=== PATIENT | female | born 1935 | race Caucasian/White ===

== ENCOUNTER 2016-05-06 14:10 | Emergency (ER) | payer OTHER ==
--- NOTE | 2016-05-06 16:25 | DIAGNOSTIC IMAGING REPORT ---
PROCEDURE: XR ABD SERIES 2V ABD/1V CHEST INDICATION: ABDOMINAL PAIN TECHNIQUE: AP supine and upright views of the abdomen with single view of the chest. COMPARISON: None. FINDINGS: CHEST: Lungs are clear. Normal cardiovascular structures. Bony thorax is unremarkable. ABDOMEN: Bowel gas pattern is normal. Right upper quadrant, left upper quadrant and left abdominal surgical changes. No soft-tissue masses or unusual calcifications. No evidence of free air. Severe degenerative changes of the spine. IMPRESSION: 1. Negative acute abdominal series. 2. Surgical changes
--- NOTE | 2016-05-06 17:31 | DIAGNOSTIC IMAGING REPORT ---
PROCEDURE: CT ABDOMEN/PELVIS W/O CONTRAST INDICATION: Right-sided abdominal pain with jaundice. TECHNIQUE: Noncontrast axial images were obtained of the entire abdomen and pelvis with sagittal and coronal reformations. COMPARISON: CT abdomen/pelvis 04/16/2016. FINDINGS: ABDOMEN: Calcified right lower lobe granuloma. Mild cardiomegaly. Gastric bypass surgery with moderate hiatal hernia. Left abdominal and midline small bowel anastomoses. Cholecystectomy with progression of the extrahepatic (2.7 cm) and intrahepatic ductal dilation. No evidence of obstructing calculus or pancreatic pathological process. Atrophic pancreas without dilation of the pancreatic duct. Pancreas, right adrenal gland and kidneys are unremarkable. 2.3 cm left adrenal mass measures -14 Hounsfield units. Moderate atherosclerosis of the aorta. Nonspecific bowel gas pattern. PELVIS: Hysterectomy. Rojas catheter in place. Mild sigmoid diverticulosis. Bilateral inguinal surgical clips. No evidence of a pelvic mass or free fluid. Degenerative changes of the hips and spine. IMPRESSION: 1. Cholecystectomy with marked progression of extra hepatic and intrahepatic ductal dilation without evidence of an obstructing calculus or pancreatic pathological process. This may be due to a stricture or sphincter of Oddi mass. 2. Gastric bypass, bowel anastomoses, hysterectomy and bilateral inguinal surgical changes 3. Left adrenal adenoma 4. Results discussed with GUILLERMO Zepeda All CT scans at this facility use dose modulation, iterative reconstruction, and/or weight-based dosing when appropriate to reduce radiation dose to as low as reasonably achievable.
--- NOTE | 2016-05-06 17:42 | ED NURSING NOTES ---
Clinical Report - Nurses [facility] [address] [place] [address] 05/06/2016 14:10 Patient: GAURI FUENTSE TRIAGE Triage time 1422 PM. Acuity: LEVEL 2. Chief Complaint: DIZZINESS, WEAKNESS, CONFUSION, CONSTIPATION, ABDOMINAL PAIN, BLACK STOOLS, UNABLE TO VOID and ITCHING. Alert. No acute distress. SEPSIS SCREEN: Sepsis Screen. Negative (no infection suspected/documented). AGUS COMA SCORE: Agus Coma Scale: 15- eyes open spontaneously (4); best verbal response- oriented x 4 (5); best motor response- obeys commands (6). --14:43 Suri Charles R.N. 14:14 05/06/16. BP: 95/52. HR: 62. RR: 13. O2 saturation: 100% on room air. Temp: 98.1 F (oral). Pain level now: 12/01. --14:43 Suri Charles R.N. Weight: 106.5 kg stated. Height/Length: 63 inches Per Patient. BMI: 41.6. --14:15 Suri Charles R.N. Medications Albuterol Sulfate HFA Inhalation 2 puffs, as needed. Benzonatate Oral 100 mg, 3x a day. Calcitriol Oral. Cranberry Oral. Doxepin HCl Oral 10 mg, at bedtime. Flovent HFA Inhalation 110 mcg, daily. Glimepiride Oral (Tablet 1 mg) 1 tablet, daily. Levothyroxine Sodium Oral 75 mcg, daily. Lovastatin Oral 40 mg, at bedtime. Magnesium Oral 400 mg, daily. MiraLax Oral 1 packet, as needed. NexIUM Oral 40 mg, daily. Nitroglycerin Translingual 0.4mg tablets, up to 3 q5min, PRN. Ranitidine HCl Oral 150 mg, 2x a day. Sertraline HCl Oral 100 mg, daily. Spironolactone Oral 25 mg, daily. Tylenol Oral 500 mg daily. Vitamin B-12 Oral. Vitamin D Oral 5000 units daily. --14:36 Suri Charles R.N. Levofloxacin Oral 500 mg, daily. --14:55 Suri Charles R.N. Ergocalciferol Oral (Capsule 33607 unit). --14:55 Suri Charles R.N. Calcium Magnesium 750 Oral. --14:56 Suri Charles R.N. Ferrous Sulfate Oral 325 mg, daily. --14:56 Suri Charles R.N. Calcitriol Oral (Capsule 0.25 mcg) 1 capsule. --14:56 Suri Charles R.N. Pantoprazole Sodium Oral 40 mg, daily. --14:57 Suri Charles R.N. Allergies Amitriptylline. Bupropion. Carbocaine. Cipro. Codeine. Demerol. Depomedrol. Erythromycin. Hydrocodone. Ibuprofen. Kenalog. LIsinopril. Marcaine. Protonix. Sulfa Antibiotics. Tetracyclines. Ultram. Xylocaine. --14:36 Suri Charles R.N. Medication/allergy information source: the patient. --14:43 Suri Charles R.N. History Arrived by EMS. Historian: patient. Primary physician (Dr. Green). ( PT brought to ED via EMS, pt states having "severe abdominal pain right upper side and up by my esophagus" complaints of being very tired and sleeping most of the day, admits to having black stool and very dark urine.). This is a new problem. (3 weeks). She has had weakness and a cough. Reports muscle aches. No fever, difficulty breathing or skin rash. Treatment MEDICAL OFFICE ASSISTANT INSTRUCTOR: None. EMS treatment MEDICAL OFFICE ASSISTANT INSTRUCTOR verbally communicated. PAST MEDICAL HX: Immunizations: up-to-date. SOCIAL HX: Former smoker. Alcohol use. No drug use. No infectious disease exposure. ABUSE ASSESSMENT: No report of abuse. SELF HARM ASSESSMENT: A self harm assessment was performed. The patient answered "no" to the question "Do you have thoughts of harming or killing yourself?" and "Have you recently had thoughts about harming or killing others?". FALL RISK ASSESSMENT: Fall risk assessment completed. No fall risk identified. NUTRITIONAL RISK ASSESSMENT: The nutritional risk assessment revealed no deficiencies. FUNCTIONAL ASSESSMENT: Functional assessment: no impairments noted. LEARNING NEEDS ASSESSMENT: The learning needs assessment revealed no barriers. SKIN INTEGRITY ASSESSMENT: Skin integrity risk assessment completed. No skin integrity risk identified. --14:43 Suri Charles R.N. PROBLEMS: Abdominal Pain. UTI - Urinary Tract Infection. Myofascial Strain. Cervical Strain. Head Injury. Laceration. Fall. Diabetes Mellitus Type 2. Edema of lower leg. Iron deficiency anemia. Depression. Anxiety Reaction. GERD. COPD - Chronic Obstructive Pulmonary Disease. Fibromyalgia. Anemia. Hypertension. Sleep Apnea. Venous stasis syndrome. Hypothyroidism. Osteoporosis. UTI frequent. Leg cramps. Anemia. Hepatitis C. Chronic renal failure syndrome. Hearing Loss. Arthritis. Landa's esophagus. Piriformis syndrome. Urinary Retention. CHF. Cognitive dysfunction. Tetanus Status. Immunizations. Atrial Fibrillation. --14:37 Suri Charles R.N. ADDITIONAL SURGERIES: Appendectomy. Cholecystectomy. Gastric bypass. Hysterectomy. Tonsillectomy. --14:37 Suri Charles R.N. Interventions ID band on patient. --14:43 Suri Charles R.N. PHYSICAL ASSESSMENT To room via stretcher. GENERAL / NEURO / PSYCH: Appears in no acute distress. The patient is disoriented to person and situation. She has had new onset of generalized weakness. RESPIRATORY: Respirations not labored. Upper, mid- and lower sternal tenderness and xiphoid tenderness. The tenderness is well-localized. Breath sounds within normal limits. CVS: Cardiac rhythm: atrial fibrillation. Capillary refill is greater than 3 seconds. GI / : Abdominal tenderness. SKIN: Normal skin turgor. ( Pt is jaundice). --14:45 Suri Charles R.N. NURSING PROGRESS NOTES 14:05/06/2016 Site #1 accessed indwelling PIV line in the left antecubital space using a 20g needle (By EMS). --14:48 Suri Charles R.N. 14:05/06/2016 Site #2 started via IV in the left antecubital space with an 18g angiocath; one attempt. --14:52 Suri Charles R.N. 14:34 05/06/2016 Started bag #1 500 mL IV Fluids IV NS (Saline); at 500 mL/hr over 30 minute(s) via site #1 via IV pump. Allergies verified and confirmed 5 rights. IV patency established. IV site checked: no pain, redness, or swelling. IV flushed thoroughly pre- and post-medication administration. --14:49 Suri Charles R.N. 14:51 05/06/2016 Site #1 removed upon admission. Catheter intact. Manual pressure applied. --14:51 Suri Charles R.N. 14:15 05/06/16. BP: 89/46 (regular adult cuff) taken on the right arm, via an automated monitor, while lying. HR: 64 (irregular). RR: 15. O2 saturation: 100% on nasal cannula at 2 liters/minute. Pain level now: 11/01. --14:53 Suri Charles R.N. Cardiac rhythm: atrial fibrillation. Patient's personal items include: dress, undergarments, purse and wallet; items were placed in belongings bag and given to the patient. She did not have shoes. The initial plan of care for this patient has been created This plan of care was discussed with the patient. Oxygen administered by nasal cannula at 2 liters. mobile unit assistant, pulse oximeter and NIBP monitor placed on patient. EKG time: (1410 PM). EKG was performed by a tech and shown to the PA. Patient ID band checked for patient name, birthdate and medical record number: patient confirmed. Blood samples drawn from the left antecubital space peripheral IV site by nurse per protocol ; labeled in presence of the patient and sent to lab: rainbow set. Patient gowned. Reassurance given. Reassessment after oxygen and fluids administered. She is calm. GENERAL / NEURO / PSYCH: Denies headache or anxiety. RESPIRATORY: Denies difficulty breathing. CVS: Denies chest pain. Two patient identifiers checked. Call light placed in reach. Side rails up x 2. Bed placed in lowest position. Brakes of bed on. --14:53 Suri Charles R.N. Reassurance given. --14:54 Suri Charles R.N. 14:30 05/06/16. BP: 93/58. HR: 74. RR: 17. O2 saturation: 100% on nasal cannula at 2 liters/minute. Pain level now: 08/01. --14:54 Suri Charles R.N. EKG time: (6684). EKG was ordered, performed by a tech and shown to the ED physician. --15:07 Patricia Townsend ER Tech1 Patient transported. (1505 PM). --15:16 Suri Charles R.N. 15:31 05/06/16. BP: 102/57. --15:31 Patricia Townsend, ER Tech1 15:44 05/06/16. BP: 104/63. HR: 66 (irregular). RR: 20. O2 saturation: 100% on nasal cannula at 2 liters/minute. Temp: 97.8 F (oral). Pain level now: 11/01. Additional comments: only when moves. --15:47 Suri Charles R.N. Cardiac rhythm: atrial fibrillation. mobile unit assistant, pulse oximeter and NIBP monitor placed on patient. Reassurance given. Reassessment after oxygen administered. She is calm. Overall patient status is the same- she states feels the same. SKIN: Moderately abnormal color (jaundice). Two patient identifiers checked. Call light placed in reach. --15:47 Suri Charles R.N. 15:00 05/06/2016 IV Fluids IV NS Discontinued: bag #1. Total amount infused: 500 mL. IV patency established. IV site checked: no pain, redness, or swelling. IV flushed thoroughly. --15:51 Suri Charles R.N. 15:50 05/06/2016 Dilaudid (HYDROmorphone HCl PF) IVP 0.5 mg given over 1 minute(s) via site #2. Allergies verified, confirmed 5 rights and sedative warning given to the patient. IV patency established. IV site checked: no pain, redness, or swelling. IV flushed thoroughly pre- and post-medication administration. IVP given by RN. --15:50 Suri Charles R.N. late entry - 16:00. The patient is calm. Overall patient status is the same- she states feels the same. Patient returned from CT by stretcher. --16:48 Suri Charles R.N. 16:07 05/06/16. BP: 84/53 (regular adult cuff) taken on the right arm, via an automated monitor, while lying. HR: 57. RR: 15. O2 saturation: 100% on nasal cannula at 2 liters/minute. Temp: 98.2 F (oral). Pain level now: 08/01. --16:48 Suri Charles R.N. Cardiac rhythm: atrial fibrillation. mobile unit assistant, pulse oximeter and NIBP monitor placed on patient. Reassurance given. ( PA aware of BP being in the 80's pt asymptomatic, returned from CT tolerate well. NPO in place, awaiting on results). --16:51 Suri Charles R.N. 16:30 05/06/16. BP: 80/54. HR: 69. RR: 18. O2 saturation: 100% on nasal cannula at 2 liters/minute. Pain level now: 08/01. Additional comments: Pt asymptomatic. --16:51 Suri Charles R.N. 18:02 05/06/16. BP: 92/46 (regular adult cuff) taken on the right arm, via an automated monitor, while lying. HR: 62. RR: 16. O2 saturation: 100% on nasal cannula at 2 liters/minute. Temp: 98.6 F (oral). Pain level now: 08/01. --18:03 Suri Charles R.N. late entry - 17:00. Cardiac rhythm: atrial fibrillation. mobile unit assistant, pulse oximeter and NIBP monitor placed on patient. Reassurance given. --18:03 Suri Charles R.N. 18:03 05/06/16. BP: 82/47 (regular adult cuff) taken on the right arm, via an automated monitor, while lying. HR: 67. RR: 15. O2 saturation: 100%. Pain level now: 08/01. --18:06 Suri Charles R.N. Cardiac rhythm: atrial fibrillation. ( Rojas output at 200cc dark elaina urine). --18:06 Suri Charles R.N. Cardiac rhythm: atrial fibrillation. mobile unit assistant, pulse oximeter and NIBP monitor placed on patient. Reassurance given. The patient is calm. Overall patient status is the same- she states feels the same. ( BP retaken on Left side for comparison, BP at 90/53). Call light placed in reach. Side rails up. --18:10 Suri Charles R.N. 18:09 05/06/16. BP: 90/53 (regular adult cuff) taken on the left arm, via an automated monitor, while lying. HR: 67. RR: 16. O2 saturation: 100% on nasal cannula at 2 liters/minute. Pain level now: 11/01. Additional comments: only upon movement. --18:10 Suri Charles R.N. ( imaging disc on chart.). --18:52 [facility] 19:13 05/06/16. BP: 93/40. HR: 71. RR: 20. O2 saturation: 100%. Temp: 98.2 F. Pain level now: 08/01. --19:15 Suri Charles R.N. Cardiac rhythm: atrial fibrillation. mobile unit assistant, pulse oximeter and NIBP monitor placed on patient. Reassurance given. The patient is calm and resting quietly. Overall patient status is the same- she states feels the same. GENERAL / NEURO / PSYCH: Denies headache. RESPIRATORY: Denies difficulty breathing. CVS: Denies chest pain. GI / : Denies nausea. Call light placed in reach. ( Pt awaiting on a hospital acceptance, comfort provided, VSS, NPO status maintained). --19:15 Suri Charles R.N. 16:15 05/06/2016 Dilaudid IVP Response: no adverse reaction. --19:15 Suri Charles R.N. The patient is resting quietly. RESPIRATORY: No respiratory distress. SKIN: Skin is warm. Skin color within normal limits. --19:29 Kimberley Awad 19:28 05/06/16. BP: 95/45. HR: 67. RR: 18. O2 saturation: 100%. --19:29 Kimberley Awad 21:00 05/06/16. BP: 91/42 (regular adult cuff) taken on the left arm, via an automated monitor, while lying. HR: 62. RR: 15. O2 saturation: 99% on nasal cannula at 2 liters/minute. Temp: 98.2 F (oral). Pain level now: 6/10. --21:31 Suri Charles R.N. Cardiac rhythm: atrial fibrillation. mobile unit assistant, pulse oximeter and NIBP monitor placed on patient. Reassurance given. The patient is calm and sleeping. ( Pt still awaiting on a bed/hospital availability, UO at 60 for the past 3 hrs, NANDINI bhandari, BP maintaining at 90's. Comfort provided.). Call light placed in reach. Side rails up x 1. Brakes of bed on. --21:31 Suri Charles R.N. 23:18 05/06/2016 Site #2 reassessed; patent, infusing well and no signs of infection or infiltration. Converted to saline lock. Flushed with 10 mL saline. --23:18 Suri Charles R.N. 23:15 05/06/16. BP: 95/45. HR: 62. RR: 15. O2 saturation: 100% on nasal cannula at 2 liters/minute. Temp: 97.6 F (oral). Pain level now: 08/01. --23:19 Suri Charles R.N. Cardiac rhythm: atrial fibrillation. mobile unit assistant, pulse oximeter and NIBP monitor placed on patient. Reassurance given. ( Awaiting on transport to [facility], report given over the phone to JOSE Stewart. Emotional support provided.). GENERAL / NEURO / PSYCH: Denies headache or anxiety. RESPIRATORY: Denies difficulty breathing. Respiratory distress present. Breath sounds normal. CVS: Denies chest pain. GI / : Denies nausea. SKIN: Skin is warm and dry. Call light placed in reach. Side rails up. Care transferred and report given (JOSE Stewart in ). --23:19 Suri Charles R.N. 00:04 05/07/2016 Site #[address] upon transfer. --00:29 Stephenie Calvert R.N. DISPOSITION / DISCHARGE 23:45 05/06/16. BP: 87/50. HR: 67. RR: 14. O2 saturation: 98% on nasal cannula at 2 liters/minute. Temp: 97.6 F (oral). Pain level now: . --00:06 Suri Charles R.N. Cardiac rhythm: atrial fibrillation. Departure time: 0006 AM. Condition at departure: stable and critical. Transported via ambulance with monitor, IV, O2 and emergency medications. Report was given to a nurse via a phone call. Report included patient's care, treatment, medications, reviewed medication reconcilliation, and condition (including any recent changes or anticipated changes). All questions were answered. Report was acknowledged and care was transferred. (JOSE Stewart). ( Report given to JOSE Gaviria from [facility], BP down to 84/45 MD Layne aware, Albumin 25% given via route to Mary Lou Gutierrez, UO still very poor less than 20 ml since 9 pm. Code status updated as per pt is DNI, comfort measures, form signed and witnessed. Pt placed on stretcher safely.). --00:06 Suri Charles R.N. <<STRICKEN ENTRY-- 00:03 05/07/2016 albumin * IV 25 grams --00:28 Stephenie Calvert R.N. --END STRIKE>> Correction. --00:29 Stephenie Calvert R.N. 00:03 05/07/2016 albumin IV 25 grams started by JOSE Mccord as pt was leaving ED for transfer to outside facility --00:29 Stephenie Calvert R.N. Locked/Released at 05/07/2016 8:37 by Jeanette Sterling R.N.
--- NOTE | 2016-05-06 17:42 | ED CLINICAL REPORT ---
Clinical Report - Physicians/Mid Levels [facility] [address] [place] [address] 05/06/2016 14:10 Patient: GAURI FUENTES Time Seen: 14:12 Apr 15 2016. Arrived- By ambulance. Historian- patient and EMS personnel. HISTORY OF PRESENT ILLNESS Chief Complaint: ABDOMINAL PAIN. It is described as "pain" and it is described as located in the upper abdomen and in the left abdomen and the left flank. This started 10 days [employer] and is still present. The patient has had nausea. (abd pain , worsening over 10 days, reports no emesis/ diarrhea. Diminished appetite, only eating a yogurt/ toast a day. Patient denies new meds, travel. She denies shortness of breath. Denies chest pain. Possible melena in her stool. Denies emesis. She denies a headache. Denies syncope.). REVIEW OF SYSTEMS No constipation, hematemesis, difficulty with urination, pain with urination or bloody stools. No fever, headache, blurred vision or chest pain or pain. No chills, sweats, cough or pedal edema. The patient has had black stools. All systems otherwise negative, except as recorded above. PAST HISTORY Pt is a former Nurse. Problems: Abdominal Pain. UTI - Urinary Tract Infection. Myofascial Strain. Cervical Strain. Head Injury. Laceration. Fall. Diabetes Mellitus Type 2. Edema of lower leg. Iron deficiency anemia. Depression. Anxiety Reaction. GERD. COPD - Chronic Obstructive Pulmonary Disease. Fibromyalgia. Anemia. Hypertension. Sleep Apnea. Venous stasis syndrome. Hypothyroidism. Osteoporosis. UTI frequent. Leg cramps. Anemia. Hepatitis C. Chronic renal failure syndrome. Hearing Loss. Arthritis. Landa's esophagus. Piriformis syndrome. Urinary Retention. CHF. Cognitive dysfunction. Tetanus Status. Immunizations. Atrial Fibrillation. Additional Surgeries: Appendectomy. Cholecystectomy. Gastric bypass. Hysterectomy. Tonsillectomy. SOCIAL HISTORY Never smoker. No alcohol use or drug use. ADDITIONAL NOTES The nursing notes have been reviewed. PHYSICAL EXAM Vital Signs: 05/06/2016 14:14 BP: 95/52. HR: 62. RR: 13. O2 saturation: 100%. Temp: 98.1 F. Pain level now: 10. Appearance: Alert. (jaundice, scleara jaundice). Eyes: Eyes normal inspection. ENT: Ears normal. Neck: Normal inspection. No lymphadenopathy. CVS: Abnormal rhythm, which is irregularly irregular. Heart sounds normal. No cardiac murmur. Respiratory: No respiratory distress. No decreased air movement or rales. Abdomen: Moderate tenderness in the left side of the abdomen. Multiple scars present (central ventral, and RUQ). No guarding. Back: Normal inspection. No CVA tenderness. Rectal: Light brown stool. Rectal exam normal and nontender. Stool heme negative. (POC test reference range: negative). Skin: Skin warm. Normal skin color. Neuro: Oriented X 3. LABS, X-RAYS, AND EKG EKG: EKG time: (1425). Atrial fibrillation (65). Normal QRS complex. RBBB. new RBB since 04/16/2016. Abdominal CT: ABDOMEN: Calcified right lower lobe granuloma. Mild cardiomegaly. Gastric bypass surgery with moderate hiatal hernia. Left abdominal and midline small bowel anastomoses. Cholecystectomy with progression of the extrahepatic (2.7 cm) and intrahepatic ductal dilation. No evidence of obstructing calculus or pancreatic pathological process. Atrophic pancreas without dilation of the pancreatic duct. Pancreas, right adrenal gland and kidneys are unremarkable. 2.3 cm left adrenal mass measures -14 Hounsfield units. Moderate atherosclerosis of the aorta. Nonspecific bowel gas pattern. PELVIS: Hysterectomy. Rojas catheter in place. Mild sigmoid diverticulosis. Bilateral inguinal surgical clips. No evidence of a pelvic mass or free fluid. Degenerative changes of the hips and spine. IMPRESSION: 1. Cholecystectomy with marked progression of extra hepatic and intrahepatic ductal dilation without evidence of an obstructing calculus or pancreatic pathological process. This may be due to a stricture or sphincter of Oddi mass. 2. Gastric bypass, bowel anastomoses, hysterectomy and bilateral inguinal surgical changes 3. Left adrenal adenoma 4. Results discussed with GUILLERMO Zepeda All CT scans at this facility use dose modulation, iterative reconstruction, and/or weight-based dosing when appropriate to reduce radiation dose to as low as reasonably achievable. Electronically Final signed by:Jared Ecsobar MD 05/06/2016 5:31:00 PM. Laboratory Tests: UA-Culture if indicated: (CHUY: 05/06/2016 14:40) ( [facility] [place] 05/06/2016 15:22) Final results Test Result Flag Units (Reference) URINE COLOR JANE URINE APPEARANCE CLEAR URINE GLUCOSE NEGATIVE (NEGATIVE) URINE BILIRUBIN 3+ (NEGATIVE) URINE BILIRUBIN ICTOTEST POSITIVE (NEGATIVE) URINE KETONE NEGATIVE (NEGATIVE) URINE SPECIFIC GRAVITY 1.025 (1.010-1.030) URINE PH 6.0 (5.0-8.0) URINE PROTEIN 1+ (NEGATIVE) URINE UROBILINOGEN 1.0 EU/dL (0.2-1.0) URINE NITRITE NEGATIVE (NEGATIVE) URINE BLOOD NEGATIVE (NEGATIVE) URINE LEUK ESTERASE NEGATIVE (NEGATIVE) URINE RBC 1-3 rbc/hpf (0-1) URINE WBC 1-3 wbc/hpf (0-1) URINE EPITHELIAL CELLS 3-5 EPI/hpf (0-5) URINE BACTERIA TRACE (<1+) (NONE SEEN) URINE COMMENT CULT NOT INDICATED URINE CULTURES ARE SET-UP BASED ON THE FOLLOWING CRITERIA:POSITIVE NITRITEPOSITIVE LEUKOCYTE ESTERASEGREATER THAN 10 WHITE BLOOD CELLSMODERATE (2+) OR GREATER BACTERIA CBC w Diff: (CHUY: 05/06/2016 14:18) ( [facility] 05/06/2016 14:28) Final results Test Result Flag Units (Reference) WHITE BLOOD COUNT 12.7 H K/uL (4.5-11.5) RED BLOOD COUNT 3.96 L M/uL (4.00-5.20) HEMOGLOBIN 11.7 L gm/dL (12.0-16.0) HEMATOCRIT 34.8 L % (36.0-46.0) MEAN CELL VOLUME 88 fL (80-100) MEAN CORPUSCULAR HGB 30 pg (26-34) MEAN CORPUSCULAR HGB CONC 34 g/dL (31-37) RED CELL DISTRIBUTION WIDTH 17.0 H % (11.6-14.8) PLATELET COUNT 282 K/uL (150-400) NEUTROPHIL % 84.3 H % (50-75) LYMPH % 4.6 L % (25-40) MONO % 10.6 % (3-14) EOSINOPHIL % 0.5 % (0-4) BASOPHIL % 0 % (0-2) PT with INR: (CHUY: 05/06/2016 14:18) ( [facility] 05/06/2016 14:43) Final results Test Result Flag Units (Reference) INR 1.1 (0.8-1.2) Low Intensity Therapy: INR 1.5-2.0 PT range 18.5-23.1Mod.Intensity Therapy: INR 2.0-3.0 PT range 23.1-31.5High Intensity Therapy: INR 2.5-3.5 PT range 27.4-35.5High Intensity Therapy 2: INR 3.0-4.0 PT range 31.5-39.3 APTT 36 H SECONDS (24-34) Troponin-I: (CHUY: 05/06/2016 20:40) ( [facility] 05/06/2016 21:20) Final results Test Result Flag Units (Reference) TROPONIN I 0.16 ng/mL (0.00-1.5) TROPONIN REFERENCE RANGE:<0.1 NEGATIVE0.1-1.5 INDETERMINANT>1.5 POSITIVE Troponin-I: (CHUY: 05/06/2016 17:43) ( [facility] 05/06/2016 18:05) Final results Test Result Flag Units (Reference) TROPONIN I 0.19 ng/mL (0.00-1.5) TROPONIN REFERENCE RANGE:<0.1 NEGATIVE0.1-1.5 INDETERMINANT>1.5 POSITIVE [id number]: (CHUY: 05/06/2016 14:18) ( [facility] 05/06/2016 15:39) Final results Test Result Flag Units (Reference) BILIRUBIN, DIRECT 13.1 H mg/dL (0-0.3) BNP: (CHUY: 05/06/2016 14:18) ( [facility] 05/06/2016 14:59) Final results Test Result Flag Units (Reference) B-TYPE NATRIURETIC PEPTIDE 1900 H pg/ml (5-100) Acetone, Serum: (CHUY: 05/06/2016 14:18) ( [facility] [place] 05/06/2016 15:24) Final results Test Result Flag Units (Reference) ACETONE, SERUM QUALITATIVE NEGATIVE (NEGATIVE) Ammonia Level: (CHUY: 05/06/2016 14:18) ( [facility] [place] 05/06/2016 16:07) Final results Test Result Flag Units (Reference) AMMONIA < 11 L umol/L (11-32) Lactate, Serum: (CHUY: 05/06/2016 14:18) ( [facility] [place] 05/06/2016 14:51) Final results Test Result Flag Units (Reference) LACTIC ACID 1.0 mmol/L (0.4-2.0) [id number]: (CHUY: 05/06/2016 14:18) ( [facility] [place] 05/06/2016 15:14) Final results Test Result Flag Units (Reference) PROCALCITONIN 1.8 H ng/mL (0-0.5) PCT Concentration: Interpretation : Risk/option for action PCT <=0.5 ng/mL : Systemic : Low risk forinfection(sepsis): progression to severeis not likely. : systemic infection.Local bacterial : CAUTION-PCT levelsinfection is : below 0.5 ng/mL do notpossible. : exclude an infection,because localizedinfections (withoutsystemic signs) may beassociated with suchlow levels. If PCT ismeasured very earlyafter a bacterialchallenge (usually <6hours), these valuesmay still be low. Inthis case PCT shouldbe re-assessed 6-24hours later. PCT >0.5 and : Systemic infection: Moderate risk for<= 2 ng/mL : (sepsis) is : progression to severepossible, but : systemic infection.other conditions : The patient should beare known to : closely monitoredelevate PCT. : both clinically andby re-assessing PCTwithin 6-24 hours. PCT > 2 ng/mL : Systemic infection: High risk for(sepsis) is likely: progression to severeunless other : systemic infection.causes are known. : PCT >= 10 ng/mL : Important systemic: High likelihood ofinflammatory : severe sepsis orresponse, almost : septic shock.exclusively due to:severe bacterial :sepsis or septic :shock. : Lipase: (CHUY: 05/06/2016 14:18) ( [facility] 05/06/2016 14:56) Final results Test Result Flag Units (Reference) LIPASE 50 L U/L (73-393) AMYLASE 21 L U/L (25-115) CHEM 13 PANEL: (CHUY: 05/06/2016 14:18) ( [facility] 05/06/2016 15:25) Final results Test Result Flag Units (Reference) GLUCOSE 81 mg/dL (70-110) BUN 48 H mg/dL (7-18) CREATININE 2.0 H mg/dL (0.6-1.3) Estimated GFR 25.61 mL/min Estimated GFR- 31.04 mL/min Note: Persistent reduction over 3 months in eGFR<60 mL/min/1.73 m2 defines CKD. Patients with eGFR values>=60 mL/min/1.73 m2 may also have CKD if evidence ofpersistent proteinuria. Additional information may be foundat www.kidney.org. SODIUM 132 L mmol/L (136-145) POTASSIUM 3.8 mmol/L (3.5-5.1) CHLORIDE 100 mmol/L (98-107) CARBON DIOXIDE 20 L mmol/L (21-32) CALCIUM 9.2 mg/dL (8.5-10.1) TOTAL PROTEIN 6.3 L g/dL (6.4-8.2) ALBUMIN 2.7 L g/dL (3.3-5.0) BILIRUBIN, TOTAL 15.2 H mg/dL (0.0-1.0) CRITICAL RESULTS CALLEDCalled to NANDINI TELLES IN ED 05/06/16 1521Were 2 patient identifiers used? YWas the result read back? Y ALKALINE PHOSPHATASE 405 H U/L (46-116) AST (SGOT) 124 H U/L (15-37) ALT (SGPT) 85 H U/L (12-78) MAGNESIUM 1.9 mg/dL (1.8-2.4) CPK 40 U/L (24-260) TROPONIN I 0.21 ng/mL (0.00-1.5) TROPONIN REFERENCE RANGE:<0.1 NEGATIVE0.1-1.5 INDETERMINANT>1.5 POSITIVE Rapid Influenza Screen: (CHUY: 05/06/2016 15:00) ( MsgRcvd 05/06/2016 15:37) Final results SPECIMEN DESCRIPTION: N Test Result Flag Units (Reference) RAPID INFLUENZA SCREEN DATE: 05/06/16 INFLUENZA A: NEGATIVE SCREEN FOR INFLUENZA A INFLUENZA B: NEGATIVE SCREEN FOR INFLUENZA B . PROGRESS AND PROCEDURES Course of Care: Discussed case with DR. Watson, who recommends non contrast CT I spoke to Dr. Dumont, surgery, who recommends higher level [address] Michael Nova (surgery prov) who recommends facility who is able to complete possible [place] 1750: [facility] to capacity 18:00 I spoke to [facility] [place] who reports they are rather full , will attempt to find placement of patient to a hospital. 21:50 I spoke to [facility] Chen , who accepts pt for transfer. Shortly this is a 80-year-old female with abdominal pain, with multiple co morbidities, with an elevated bilirubin today, with jaundice, status post cholecystectomy, with no obvious signs of obstruction on CAT scan. Patient likely need of an ERCP, to understand furtherbiliary possible obstruction. She has been nonseptic here afebrile, with slight leukocytosis with a left shift, with a negative lactic acid. Systolically her blood pressure has been from 80-1 sign, otherwise she has remained irregular regular from 58-72 heart rate. In addition patient has chronic renal failure, creatinine of 2.0, and addition she does not appear fluid overloaded, without any edema, her has BNP of almost 2000 she was given a 500 mL bolus upon arrival, and the fluid was stopped after results. Troponin was found to indeterminate 0.21, and has trended downward from such to 0.19 as well as 0.16. Her EKG showed atrial fibrillation otherwise also a right bundle branch block. I discussed patient's CODE STATUS with her, this time she does not want any extreme measures. 05/06/2016 21:00 BP: 91/42. HR: 62. RR: 15. O2 saturation: 99%. Temp: 98.2 F. Pain level now: 08/01. 05/06/2016 19:28 BP: 95/45. HR: 67. RR: 18. O2 saturation: 100%. 05/06/2016 19:13 BP: 93/40. HR: 71. RR: 20. O2 saturation: 100%. Temp: 98.2 F. Pain level now: 08/01. 05/06/2016 18:09 BP: 90/53. HR: 67. RR: 16. O2 saturation: 100%. Pain level now: 11/01. 05/06/2016 15:44 BP: 104/63. HR: 66. RR: 20. O2 saturation: 100%. Temp: 97.8 F. Pain level now: 11/01. 05/06/2016 15:31 BP: 102/57. 05/06/2016 14:30 BP: 93/58. HR: 74. RR: 17. O2 saturation: 100%. Pain level now: 08/01. 05/06/2016 14:15 BP: 89/46. HR: 64. RR: 15. O2 saturation: 100%. Pain level now: 11/01. Patient is stable. Symptoms better. Patient/family counseled. Disposition: Transferred to [facility]. CLINICAL IMPRESSION Suspected biliary obstruction Indeterminate Troponin Leukocytosis Afib Chronic Renal Failure DM CHF. INSTRUCTIONS Warnings: Further evaluation is necessary. (Electronically signed by Sandrine Telles P.A.-C 05/06/2016 22:23)
--- NOTE | 2016-05-06 17:42 | ED CLINICAL REPORT ---
Clinical Report - Physicians/Mid Levels [facility] [address] [place] [address] 05/06/2016 14:10 Patient: GAURI FUENTES Time Seen: 14:12 Apr 15 2016. Arrived- By ambulance. Historian- patient and EMS personnel. HISTORY OF PRESENT ILLNESS Chief Complaint: ABDOMINAL PAIN. It is described as "pain" and it is described as located in the upper abdomen and in the left abdomen and the left flank. This started 10 days [employer] and is still present. The patient has had nausea. (abd pain , worsening over 10 days, reports no emesis/ diarrhea. Diminished appetite, only eating a yogurt/ toast a day. Patient denies new meds, travel. She denies shortness of breath. Denies chest pain. Possible melena in her stool. Denies emesis. She denies a headache. Denies syncope.). REVIEW OF SYSTEMS No constipation, hematemesis, difficulty with urination, pain with urination or bloody stools. No fever, headache, blurred vision or chest pain or pain. No chills, sweats, cough or pedal edema. The patient has had black stools. All systems otherwise negative, except as recorded above. PAST HISTORY Pt is a former Nurse. Problems: Abdominal Pain. UTI - Urinary Tract Infection. Myofascial Strain. Cervical Strain. Head Injury. Laceration. Fall. Diabetes Mellitus Type 2. Edema of lower leg. Iron deficiency anemia. Depression. Anxiety Reaction. GERD. COPD - Chronic Obstructive Pulmonary Disease. Fibromyalgia. Anemia. Hypertension. Sleep Apnea. Venous stasis syndrome. Hypothyroidism. Osteoporosis. UTI frequent. Leg cramps. Anemia. Hepatitis C. Chronic renal failure syndrome. Hearing Loss. Arthritis. Landa's esophagus. Piriformis syndrome. Urinary Retention. CHF. Cognitive dysfunction. Tetanus Status. Immunizations. Atrial Fibrillation. Additional Surgeries: Appendectomy. Cholecystectomy. Gastric bypass. Hysterectomy. Tonsillectomy. SOCIAL HISTORY Never smoker. No alcohol use or drug use. ADDITIONAL NOTES The nursing notes have been reviewed. PHYSICAL EXAM Vital Signs: 05/06/2016 14:14 BP: 95/52. HR: 62. RR: 13. O2 saturation: 100%. Temp: 98.1 F. Pain level now: 10. Appearance: Alert. (jaundice, scleara jaundice). Eyes: Eyes normal inspection. ENT: Ears normal. Neck: Normal inspection. No lymphadenopathy. CVS: Abnormal rhythm, which is irregularly irregular. Heart sounds normal. No cardiac murmur. Respiratory: No respiratory distress. No decreased air movement or rales. Abdomen: Moderate tenderness in the left side of the abdomen. Multiple scars present (central ventral, and RUQ). No guarding. Back: Normal inspection. No CVA tenderness. Rectal: Light brown stool. Rectal exam normal and nontender. Stool heme negative. (POC test reference range: negative). Skin: Skin warm. Normal skin color. Neuro: Oriented X 3. LABS, X-RAYS, AND EKG EKG: EKG time: (1425). Atrial fibrillation (65). Normal QRS complex. RBBB. new RBB since 04/16/2016. Abdominal CT: ABDOMEN: Calcified right lower lobe granuloma. Mild cardiomegaly. Gastric bypass surgery with moderate hiatal hernia. Left abdominal and midline small bowel anastomoses. Cholecystectomy with progression of the extrahepatic (2.7 cm) and intrahepatic ductal dilation. No evidence of obstructing calculus or pancreatic pathological process. Atrophic pancreas without dilation of the pancreatic duct. Pancreas, right adrenal gland and kidneys are unremarkable. 2.3 cm left adrenal mass measures -14 Hounsfield units. Moderate atherosclerosis of the aorta. Nonspecific bowel gas pattern. PELVIS: Hysterectomy. Rojas catheter in place. Mild sigmoid diverticulosis. Bilateral inguinal surgical clips. No evidence of a pelvic mass or free fluid. Degenerative changes of the hips and spine. IMPRESSION: 1. Cholecystectomy with marked progression of extra hepatic and intrahepatic ductal dilation without evidence of an obstructing calculus or pancreatic pathological process. This may be due to a stricture or sphincter of Oddi mass. 2. Gastric bypass, bowel anastomoses, hysterectomy and bilateral inguinal surgical changes 3. Left adrenal adenoma 4. Results discussed with GUILLERMO Zepeda All CT scans at this facility use dose modulation, iterative reconstruction, and/or weight-based dosing when appropriate to reduce radiation dose to as low as reasonably achievable. Electronically Final signed by:Jared Escobar MD 05/06/2016 5:31:00 PM. Laboratory Tests: UA-Culture if indicated: (CHUY: 05/06/2016 14:40) ( [facility] [place] 05/06/2016 15:22) Final results Test Result Flag Units (Reference) URINE COLOR JANE URINE APPEARANCE CLEAR URINE GLUCOSE NEGATIVE (NEGATIVE) URINE BILIRUBIN 3+ (NEGATIVE) URINE BILIRUBIN ICTOTEST POSITIVE (NEGATIVE) URINE KETONE NEGATIVE (NEGATIVE) URINE SPECIFIC GRAVITY 1.025 (1.010-1.030) URINE PH 6.0 (5.0-8.0) URINE PROTEIN 1+ (NEGATIVE) URINE UROBILINOGEN 1.0 EU/dL (0.2-1.0) URINE NITRITE NEGATIVE (NEGATIVE) URINE BLOOD NEGATIVE (NEGATIVE) URINE LEUK ESTERASE NEGATIVE (NEGATIVE) URINE RBC 1-3 rbc/hpf (0-1) URINE WBC 1-3 wbc/hpf (0-1) URINE EPITHELIAL CELLS 3-5 EPI/hpf (0-5) URINE BACTERIA TRACE (<1+) (NONE SEEN) URINE COMMENT CULT NOT INDICATED URINE CULTURES ARE SET-UP BASED ON THE FOLLOWING CRITERIA:POSITIVE NITRITEPOSITIVE LEUKOCYTE ESTERASEGREATER THAN 10 WHITE BLOOD CELLSMODERATE (2+) OR GREATER BACTERIA CBC w Diff: (CHUY: 05/06/2016 14:18) ( [facility] 05/06/2016 14:28) Final results Test Result Flag Units (Reference) WHITE BLOOD COUNT 12.7 H K/uL (4.5-11.5) RED BLOOD COUNT 3.96 L M/uL (4.00-5.20) HEMOGLOBIN 11.7 L gm/dL (12.0-16.0) HEMATOCRIT 34.8 L % (36.0-46.0) MEAN CELL VOLUME 88 fL (80-100) MEAN CORPUSCULAR HGB 30 pg (26-34) MEAN CORPUSCULAR HGB CONC 34 g/dL (31-37) RED CELL DISTRIBUTION WIDTH 17.0 H % (11.6-14.8) PLATELET COUNT 282 K/uL (150-400) NEUTROPHIL % 84.3 H % (50-75) LYMPH % 4.6 L % (25-40) MONO % 10.6 % (3-14) EOSINOPHIL % 0.5 % (0-4) BASOPHIL % 0 % (0-2) PT with INR: (CHUY: 05/06/2016 14:18) ( [facility] 05/06/2016 14:43) Final results Test Result Flag Units (Reference) INR 1.1 (0.8-1.2) Low Intensity Therapy: INR 1.5-2.0 PT range 18.5-23.1Mod.Intensity Therapy: INR 2.0-3.0 PT range 23.1-31.5High Intensity Therapy: INR 2.5-3.5 PT range 27.4-35.5High Intensity Therapy 2: INR 3.0-4.0 PT range 31.5-39.3 APTT 36 H SECONDS (24-34) Troponin-I: (CHUY: 05/06/2016 20:40) ( [facility] 05/06/2016 21:20) Final results Test Result Flag Units (Reference) TROPONIN I 0.16 ng/mL (0.00-1.5) TROPONIN REFERENCE RANGE:<0.1 NEGATIVE0.1-1.5 INDETERMINANT>1.5 POSITIVE Troponin-I: (CHUY: 05/06/2016 17:43) ( [facility] 05/06/2016 18:05) Final results Test Result Flag Units (Reference) TROPONIN I 0.19 ng/mL (0.00-1.5) TROPONIN REFERENCE RANGE:<0.1 NEGATIVE0.1-1.5 INDETERMINANT>1.5 POSITIVE [id number]: (CHUY: 05/06/2016 14:18) ( [facility] 05/06/2016 15:39) Final results Test Result Flag Units (Reference) BILIRUBIN, DIRECT 13.1 H mg/dL (0-0.3) BNP: (CHUY: 05/06/2016 14:18) ( [facility] 05/06/2016 14:59) Final results Test Result Flag Units (Reference) B-TYPE NATRIURETIC PEPTIDE 1900 H pg/ml (5-100) Acetone, Serum: (CHUY: 05/06/2016 14:18) ( [facility] [place] 05/06/2016 15:24) Final results Test Result Flag Units (Reference) ACETONE, SERUM QUALITATIVE NEGATIVE (NEGATIVE) Ammonia Level: (CHUY: 05/06/2016 14:18) ( [facility] [place] 05/06/2016 16:07) Final results Test Result Flag Units (Reference) AMMONIA < 11 L umol/L (11-32) Lactate, Serum: (CHUY: 05/06/2016 14:18) ( [facility] [place]/06[place]2016 14:51) Final results Test Result Flag Units (Reference) LACTIC ACID 1.0 mmol/L (0.4-2.0) [id number]: (CHUY: 05/06/2016 14:18) ( [facility] [place] 05/06/2016 15:14) Final results Test Result Flag Units (Reference) PROCALCITONIN 1.8 H ng/mL (0-0.5) PCT Concentration: Interpretation : Risk/option for action PCT <=0.5 ng/mL : Systemic : Low risk forinfection(sepsis): progression to severeis not likely. : systemic infection.Local bacterial : CAUTION-PCT levelsinfection is : below 0.5 ng/mL do notpossible. : exclude an infection,because localizedinfections (withoutsystemic signs) may beassociated with suchlow levels. If PCT ismeasured very earlyafter a bacterialchallenge (usually <6hours), these valuesmay still be low. Inthis case PCT shouldbe re-assessed 6-24hours later. PCT >0.5 and : Systemic infection: Moderate risk for<= 2 ng/mL : (sepsis) is : progression to severepossible, but : systemic infection.other conditions : The patient should beare known to : closely monitoredelevate PCT. : both clinically andby re-assessing PCTwithin 6-24 hours. PCT > 2 ng/mL : Systemic infection: High risk for(sepsis) is likely: progression to severeunless other : systemic infection.causes are known. : PCT >= 10 ng/mL : Important systemic: High likelihood ofinflammatory : severe sepsis orresponse, almost : septic shock.exclusively due to:severe bacterial :sepsis or septic :shock. : Lipase: (CHUY: 05/06/2016 14:18) ( [facility] 05/06/2016 14:56) Final results Test Result Flag Units (Reference) LIPASE 50 L U/L (73-393) AMYLASE 21 L U/L (25-115) CHEM 13 PANEL: (CHUY: 05/06/2016 14:18) ( [facility] 05/06/2016 15:25) Final results Test Result Flag Units (Reference) GLUCOSE 81 mg/dL (70-110) BUN 48 H mg/dL (7-18) CREATININE 2.0 H mg/dL (0.6-1.3) Estimated GFR 25.61 mL/min Estimated GFR- 31.04 mL/min Note: Persistent reduction over 3 months in eGFR<60 mL/min/1.73 m2 defines CKD. Patients with eGFR values>=60 mL/min/1.73 m2 may also have CKD if evidence ofpersistent proteinuria. Additional information may be foundat www.kidney.org. SODIUM 132 L mmol/L (136-145) POTASSIUM 3.8 mmol/L (3.5-5.1) CHLORIDE 100 mmol/L (98-107) CARBON DIOXIDE 20 L mmol/L (21-32) CALCIUM 9.2 mg/dL (8.5-10.1) TOTAL PROTEIN 6.3 L g/dL (6.4-8.2) ALBUMIN 2.7 L g/dL (3.3-5.0) BILIRUBIN, TOTAL 15.2 H mg/dL (0.0-1.0) CRITICAL RESULTS CALLEDCalled to NANDINI TELLES IN ED 05/06/16 1521Were 2 patient identifiers used? YWas the result read back? Y ALKALINE PHOSPHATASE 405 H U/L (46-116) AST (SGOT) 124 H U/L (15-37) ALT (SGPT) 85 H U/L (12-78) MAGNESIUM 1.9 mg/dL (1.8-2.4) CPK 40 U/L (24-260) TROPONIN I 0.21 ng/mL (0.00-1.5) TROPONIN REFERENCE RANGE:<0.1 NEGATIVE0.1-1.5 INDETERMINANT>1.5 POSITIVE Rapid Influenza Screen: (CHUY: 05/06/2016 15:00) ( [facility] 05/06/2016 15:37) Final results SPECIMEN DESCRIPTION: N Test Result Flag Units (Reference) RAPID INFLUENZA SCREEN DATE: 05/06/16 INFLUENZA A: NEGATIVE SCREEN FOR INFLUENZA A INFLUENZA B: NEGATIVE SCREEN FOR INFLUENZA B . PROGRESS AND PROCEDURES Course of Care: Discussed case with DR. Watson, who recommends non contrast CT I spoke to Dr. Dumont, surgery, who recommends higher level [address] Michael Nova (surgery prov) who recommends facility who is able to complete possible [place] 1750: [facility] to capacity 18:00 I spoke to [facility] transfer center, who reports they are rather full , will attempt to find placement of patient to a hospital. 21:50 I spoke to [facility] Chen , who accepts pt for transfer. Shortly this is a 80-year-old female with abdominal pain, with multiple co morbidities, with an elevated bilirubin today, with jaundice, status post cholecystectomy, with no obvious signs of obstruction on CAT scan. Patient likely need of an ERCP, to understand furtherbiliary possible obstruction. She has been nonseptic here afebrile, with slight leukocytosis with a left shift, with a negative lactic acid. Systolically her blood pressure has been from 80-1 sign, otherwise she has remained irregular regular from 58-72 heart rate. In addition patient has chronic renal failure, creatinine of 2.0, and addition she does not appear fluid overloaded, without any edema, her has BNP of almost 2000 she was given a 500 mL bolus upon arrival, and the fluid was stopped after results. Troponin was found to indeterminate 0.21, and has trended downward from such to 0.19 as well as 0.16. Her EKG showed atrial fibrillation otherwise also a right bundle branch block. I discussed patient's CODE STATUS with her, this time she does not want any extreme measures. 05/06/2016 21:00 BP: 91/42. HR: 62. RR: 15. O2 saturation: 99%. Temp: 98.2 F. Pain level now: 08/01. 05/06/2016 19:28 BP: 95/45. HR: 67. RR: 18. O2 saturation: 100%. 05/06/2016 19:13 BP: 93/40. HR: 71. RR: 20. O2 saturation: 100%. Temp: 98.2 F. Pain level now: 08/01. 05/06/2016 18:09 BP: 90/53. HR: 67. RR: 16. O2 saturation: 100%. Pain level now: 11/01. 05/06/2016 15:44 BP: 104/63. HR: 66. RR: 20. O2 saturation: 100%. Temp: 97.8 F. Pain level now: 11/01. 05/06/2016 15:31 BP: 102/57. 05/06/2016 14:30 BP: 93/58. HR: 74. RR: 17. O2 saturation: 100%. Pain level now: 08/01. 05/06/2016 14:15 BP: 89/46. HR: 64. RR: 15. O2 saturation: 100%. Pain level now: 11/01. Patient is stable. Symptoms better. Patient/family counseled. Disposition: Transferred to [facility]. CLINICAL IMPRESSION Suspected biliary obstruction Indeterminate Troponin Leukocytosis Afib Chronic Renal Failure DM CHF. INSTRUCTIONS Warnings: Further evaluation is necessary. (Electronically signed by Sandrine Telles P.A.-C 05/06/2016 22:23)
--- NOTE | 2016-05-06 17:42 | ED ORDER SUMMARY ---
..... Patient: GAURI FUENTES OrderSheet [facility] VisitID: [id number] [address] [place] [address] 80y, F Registration Date/Time: 05/06/2016 ORDER SHEET Weight: 106.5 kg (stated) Allergies: Amitriptylline, Bupropion, Carbocaine, Cipro, Codeine, Demerol, Depomedrol, Erythromycin, Hydrocodone, Ibuprofen, Kenalog, LIsinopril, Marcaine, Protonix, Sulfa Antibiotics, Tetracyclines, Ultram, Xylocaine GENERAL ORDERS: Cardiac Panel Stat (14:05/06/2016 EKoroleva P.A.-C) (Ack 14:19 GRANToerner) (14:48 EHassan R.N.) PT with INR Urgent (14:05/06/2016 EKoroleva P.A.-C) (Ack 14:19 KHoerner) (14:48 EHassan R.N.) PTT Urgent (14:05/06/2016 EKoroleva P.A.-C) (Ack 14:19 KHoerner) (14:48 EHassan R.N.) Lipase Urgent (14:05/06/2016 EKoroleva P.A.-C) (Ack 14:19 KHoerner) (14:48 EHassan R.N.) Amylase Urgent (14:05/06/2016 EKoroleva P.A.-C) (Ack 14:19 KHoerner) (14:48 EHassan R.N.) Ammonia Level Urgent (14:05/06/2016 EKoroleva P.A.-C) (Ack 14:19 KHoerner) (14:48 EHassan R.N.) Lactate, Serum Urgent (14:05/06/2016 EKoroleva P.A.-C) (Ack 14:19 KHoerner) (14:48 EHassan R.N.) PCT (Procalcitonin) Urgent (14:05/06/2016 EKoroleva P.A.-C) (Ack 14:19 KHoerner) (14:48 EHassan R.N.) Abd Series 2V Abd/1V Chest Urgent (14:15 05/06/2016 EKoroleva P.A.-C) (Ack 14:19 KHoerner) (15:01 EHassan R.N.) Fur Feeder (Continuous) (14:15 05/06/2016 EKoroleva P.A.-C) (Ack 14:19 KHoerner) (14:48 EHassan R.N.) BNP Urgent (14:15 05/06/2016 EKoroleva P.A.-C) (Ack 14:19 KHoerner) (14:48 EHassan R.N.) Acetone, Serum Urgent (14:15 05/06/2016 EKoroleva P.A.-C) (Ack 14:19 KHoerner) (14:48 EHassan R.N.) EKG - ER Stat (14:15 05/06/2016 EKoroleva P.A.-C) (Ack 14:19 KHoerner) (14:24 KHoerner) Rapid Influenza Screen (Nasal Pharyngeal) (n) Urgent (14:16 05/06/2016 EKoroleva P.A.-C) (Ack 14:19 KHoerner) (15:00 EHassan R.N.) UA-Culture if indicated Urgent (14:35 05/06/2016 EKoroleva P.A.-C) (Ack 14:36 KHoerner) (14:48 EHassan R.N.) - (direct bili) (15:24 05/06/2016 EKoroleva P.A.-C) (15:28 KHoerner) CT Abd/Pel wo Cont Urgent (15:34 05/06/2016 EKoroleva P.A.-C) (Ack 15:37 KHoerner) (16:13 KHoerner) Troponin-I Urgent (17:32 05/06/2016 EKoroleva P.A.-C) (Ack 18:04 KHoerner) (19:15 EHassan R.N.) Troponin-I Urgent (20:28 05/06/2016 EKoroleva P.A.-C) (Ack 20:31 AMcQuoid ER Tech1) (21:16 AMcQuoid ER Tech1) MEDICATION ORDERS: - (Albumin 25 grams IV x 1 now) (23:47 05/06/2016 Isidro Reynoso) IV FLUIDS: IV NS : initial bolus 500 mL (1000 mL/hr), then 125 mL/hr for X1 (NOW); Rikki (14:30 05/06/2016 Blessing Lazaro.A.-C) (14:49 Luda R.N.) Dilaudid IV 0.5 mg (HIGH ALERT MEDICATION, NOW) (14:58 05/06/2016 Blessing P.A.-C) (15:50 Luda Cabrera.Leo.) ORDER SHEET NOTES: [Electronically signed by Sandrine Westfall-C (22:23 05/06/2016)] [Electronically signed by Kimberley Awad (00:25 05/07/2016)] [Electronically signed by Kimberley Awad (00:26 05/07/2016)] [Electronically signed by Stephenie Calvert R.N. (00:27 05/07/2016)] [Electronically signed by Stephenie Calvert R.N. (00:29 05/07/2016)] [Electronically signed by Stephenie CalvertNTiburcio (00:30 05/07/2016)] [Electronically signed by Stephenie CalvertNTiburcio (00:31 05/07/2016)] [Electronically signed by Stephenie CalvertNTiburcio (00:32 05/07/2016)] [Electronically signed by Jeanette Streling R.N. (08:37 05/07/2016)] [Electronically locked/signed by Kimberley Awad (00:25 05/07/2016)]
--- NOTE | 2016-05-06 17:42 | ED ORDER SUMMARY ---
..... Patient: GAURI FUENTES OrderSheet [facility] VisitID: [id number] [address] [place] [address] 80y, F Registration Date/Time: 05/06/2016 ORDER SHEET Weight: 106.5 kg (stated) Allergies: Amitriptylline, Bupropion, Carbocaine, Cipro, Codeine, Demerol, Depomedrol, Erythromycin, Hydrocodone, Ibuprofen, Kenalog, LIsinopril, Marcaine, Protonix, Sulfa Antibiotics, Tetracyclines, Ultram, Xylocaine GENERAL ORDERS: Cardiac Panel Stat (14:05/06/2016 EKoroleva P.A.-C) (Ack 14:19 GRANToerner) (14:48 EHassan R.N.) PT with INR Urgent (14:05/06/2016 EKoroleva P.A.-C) (Ack 14:19 KHoerner) (14:48 EHassan R.N.) PTT Urgent (14:05/06/2016 EKoroleva P.A.-C) (Ack 14:19 KHoerner) (14:48 EHassan R.N.) Lipase Urgent (14:05/06/2016 EKoroleva P.A.-C) (Ack 14:19 KHoerner) (14:48 EHassan R.N.) Amylase Urgent (14:05/06/2016 EKoroleva P.A.-C) (Ack 14:19 KHoerner) (14:48 EHassan R.N.) Ammonia Level Urgent (14:05/06/2016 EKoroleva P.A.-C) (Ack 14:19 KHoerner) (14:48 EHassan R.N.) Lactate, Serum Urgent (14:05/06/2016 EKoroleva P.A.-C) (Ack 14:19 KHoerner) (14:48 EHassan R.N.) PCT (Procalcitonin) Urgent (14:05/06/2016 EKoroleva P.A.-C) (Ack 14:19 KHoerner) (14:48 EHassan R.N.) Abd Series 2V Abd/1V Chest Urgent (14:15 05/06/2016 EKoroleva P.A.-C) (Ack 14:19 KHoerner) (15:01 EHassan R.N.) Bit Sander (Continuous) (14:15 05/06/2016 EKoroleva P.A.-C) (Ack 14:19 KHoerner) (14:48 EHassan R.N.) BNP Urgent (14:15 05/06/2016 EKoroleva P.A.-C) (Ack 14:19 KHoerner) (14:48 EHassan R.N.) Acetone, Serum Urgent (14:15 05/06/2016 EKoroleva P.A.-C) (Ack 14:19 KHoerner) (14:48 EHassan R.N.) EKG - ER Stat (14:15 05/06/2016 EKoroleva P.A.-C) (Ack 14:19 KHoerner) (14:24 KHoerner) Rapid Influenza Screen (Nasal Pharyngeal) (n) Urgent (14:16 05/06/2016 EKoroleva P.A.-C) (Ack 14:19 KHoerner) (15:00 EHassan R.N.) UA-Culture if indicated Urgent (14:35 05/06/2016 EKoroleva P.A.-C) (Ack 14:36 KHoerner) (14:48 EHassan R.N.) - (direct bili) (15:24 05/06/2016 EKoroleva P.A.-C) (15:28 KHoerner) CT Abd/Pel wo Cont Urgent (15:34 05/06/2016 EKoroleva P.A.-C) (Ack 15:37 KHoerner) (16:13 KHoerner) Troponin-I Urgent (17:32 05/06/2016 EKoroleva P.A.-C) (Ack 18:04 KHoerner) (19:15 EHassan R.N.) Troponin-I Urgent (20:28 05/06/2016 EKoroleva P.A.-C) (Ack 20:31 AMcQuoid ER Tech1) (21:16 AMcQuoid ER Tech1) MEDICATION ORDERS: - (Albumin 25 grams IV x 1 now) (23:47 05/06/2016 Isidro Reynoso) IV FLUIDS: IV NS : initial bolus 500 mL (1000 mL/hr), then 125 mL/hr for X1 (NOW); Rikki (14:30 05/06/2016 Blessing Lazaro.A.-C) (14:49 Luda R.N.) Dilaudid IV 0.5 mg (HIGH ALERT MEDICATION, NOW) (14:58 05/06/2016 Blessing P.A.-C) (15:50 Luda Cabrera.Leo.) ORDER SHEET NOTES: [Electronically signed by Sandrine Westfall-C (22:23 05/06/2016)] [Electronically signed by Kimberley Awad (00:25 05/07/2016)] [Electronically signed by Kimberley Awad (00:26 05/07/2016)] [Electronically signed by Stephenie Calvert R.N. (00:27 05/07/2016)] [Electronically signed by Stephenie Calvert R.N. (00:29 05/07/2016)] [Electronically signed by Stephenie CalvertNTiburcio (00:30 05/07/2016)] [Electronically signed by Stephenie CalvertNTiburcio (00:31 05/07/2016)] [Electronically signed by Stephenie CalvertNTiburcio (00:32 05/07/2016)] [Electronically signed by Jeanette Sterling R.N. (08:37 05/07/2016)] [Electronically locked/signed by Kimberley Awad (00:25 05/07/2016)]
--- NOTE | 2016-05-07 08:38 | ED DISCHARGE INSTRUCTIONS ---
Patient: GAURI FUENTES General Instructions [facility] VisitID: [id number] [address] [place] [address] 80y, F Registration Date/Time: 05/06/2016 Suspected biliary obstruction Indeterminate Troponin Leukocytosis Afib Chronic Renal Failure DM CHF. INSTRUCTIONS Warnings: Further evaluation is necessary. (Electronically signed by Sandrine Westfall P.A.-C 05/06/2016 22:23)
--- NOTE | 2016-05-07 08:38 | ED MED RECONCILIATION SUMMARY ---
Patient: GAURI FUENTES Medication Reconciliation Report [facility] VisitID: [id number] [address] [place] [address] 80y, F Registration Date/Time: 05/06/2016 Weight: 106.5 kg Height/Length: 63 in. BMI: 41.6 ALLERGIES: Amitriptylline, Bupropion, Carbocaine, Cipro, Codeine, Demerol, Depomedrol, Erythromycin, Hydrocodone, Ibuprofen, Kenalog, LIsinopril, Marcaine, Protonix, Sulfa Antibiotics, Tetracyclines, Ultram, Xylocaine The patient's Home Medications are listed below: THE FOLLOWING MEDICATIONS NEED TO BE RECONCILED: Albuterol Sulfate HFA Inhalation 2 puffs Benzonatate Oral 100 mg, 3x a day Calcitriol Oral Calcitriol Oral (0.25 mcg) 1 capsule Calcium Magnesium 750 Oral Cranberry Oral Doxepin HCl Oral 10 mg, at bedtime Ergocalciferol Oral (79875 unit) Ferrous Sulfate Oral 325 mg, daily Flovent HFA Inhalation 110 mcg, daily Glimepiride Oral (1 mg) 1 tablet, daily Levofloxacin Oral 500 mg, daily Levothyroxine Sodium Oral 75 mcg, daily Lovastatin Oral 40 mg, at bedtime Magnesium Oral 400 mg, daily MiraLax Oral 1 packet NexIUM Oral 40 mg, daily Nitroglycerin Translingual 0.4mg tablets, up to 3 q5min, PRN Pantoprazole Sodium Oral 40 mg, daily Ranitidine HCl Oral 150 mg, 2x a day Sertraline HCl Oral 100 mg, daily Spironolactone Oral 25 mg, daily Tylenol Oral 500 mg daily Vitamin B-12 Oral Vitamin D Oral 5000 units daily The source(s) of the original Home Medication information: patient The following Medications were given to the patient in the Emergency Department: IV NS IV Fluids bolus 0, then 500 mL/hr, administered: 05/06/2016 2:34:00 PM Dilaudid [IVP] IVP 0.5 mg, administered: 05/06/2016 3:50:00 PM albumin IV bolus 0, then 25 grams, administered: 05/07/2016 12:03:02 AM The following Medications were prescribed to the patient: None.
--- NOTE | 2016-05-07 08:38 | ED MAR SUMMARY ---
..... Medication Administration Record [facility] [address] [place] [address] Patient: GAURI FUENTES Visit ID: [id number] 80y, F Weight: 106.5 kg Height/Length: 63 in BMI: 41.6 ALLERGIES: Amitriptylline, Bupropion, Carbocaine, Cipro, Codeine, Demerol, Depomedrol, Erythromycin, Hydrocodone, Ibuprofen, Kenalog, LIsinopril, Marcaine, Protonix, Sulfa Antibiotics, Tetracyclines, Ultram, Xylocaine Start 14:34 05/06/2016 Suri Charles RArron, Stop 15:00 05/06/2016 Suri Charles R.N. Medication Administered: IV NS (SALINE), Dose: IV Fluids over 30 minute(s), Rate: 500 mL/hr, Dispensed: 500 mL bag, Site: #1 left AC. Medication Ordered: IV NS : initial bolus 500 mL (1000 mL/hr), then 125 mL/hr for X1 (NOW); Rikki. Given 15:50 05/06/2016 Suri Charles R.N. Medication Administered: DILAUDID [IVP] (HYDROMORPHONE HCL PF), Dose: 0.5 mg IVP over 1 minute(s), Site: #2 left AC. Medication Ordered: Dilaudid IV 0.5 mg (HIGH ALERT MEDICATION, NOW). Start 00:03 05/07/2016 Stephenie Calvert RArron Medication Administered: albumin *, Dose: 25 grams * IV. Medication Ordered: - (Albumin 25 grams IV x 1 now).
--- NOTE | 2016-05-07 08:38 | ED MAR SUMMARY ---
..... Medication Administration Record [facility] [address] [place] [address] Patient: GAURI FUENTES Visit ID: [id number] 80y, F Weight: 106.5 kg Height/Length: 63 in BMI: 41.6 ALLERGIES: Amitriptylline, Bupropion, Carbocaine, Cipro, Codeine, Demerol, Depomedrol, Erythromycin, Hydrocodone, Ibuprofen, Kenalog, LIsinopril, Marcaine, Protonix, Sulfa Antibiotics, Tetracyclines, Ultram, Xylocaine Start 14:34 05/06/2016 Suri Charles RArron, Stop 15:00 05/06/2016 Suri Charles R.N. Medication Administered: IV NS (SALINE), Dose: IV Fluids over 30 minute(s), Rate: 500 mL/hr, Dispensed: 500 mL bag, Site: #1 left AC. Medication Ordered: IV NS : initial bolus 500 mL (1000 mL/hr), then 125 mL/hr for X1 (NOW); Rikki. Given 15:50 05/06/2016 Suri Charles R.N. Medication Administered: DILAUDID [IVP] (HYDROMORPHONE HCL PF), Dose: 0.5 mg IVP over 1 minute(s), Site: #2 left AC. Medication Ordered: Dilaudid IV 0.5 mg (HIGH ALERT MEDICATION, NOW). Start 00:03 05/07/2016 Stephenie Calvert RArron Medication Administered: albumin *, Dose: 25 grams * IV. Medication Ordered: - (Albumin 25 grams IV x 1 now).
--- NOTE | 2016-05-07 08:38 | ED MED RECONCILIATION SUMMARY ---
Patient: GAURI FUENTES Medication Reconciliation Report [facility] VisitID: [id number] [address] [place] [address] 80y, F Registration Date/Time: 05/06/2016 Weight: 106.5 kg Height/Length: 63 in. BMI: 41.6 ALLERGIES: Amitriptylline, Bupropion, Carbocaine, Cipro, Codeine, Demerol, Depomedrol, Erythromycin, Hydrocodone, Ibuprofen, Kenalog, LIsinopril, Marcaine, Protonix, Sulfa Antibiotics, Tetracyclines, Ultram, Xylocaine The patient's Home Medications are listed below: THE FOLLOWING MEDICATIONS NEED TO BE RECONCILED: Albuterol Sulfate HFA Inhalation 2 puffs Benzonatate Oral 100 mg, 3x a day Calcitriol Oral Calcitriol Oral (0.25 mcg) 1 capsule Calcium Magnesium 750 Oral Cranberry Oral Doxepin HCl Oral 10 mg, at bedtime Ergocalciferol Oral (66763 unit) Ferrous Sulfate Oral 325 mg, daily Flovent HFA Inhalation 110 mcg, daily Glimepiride Oral (1 mg) 1 tablet, daily Levofloxacin Oral 500 mg, daily Levothyroxine Sodium Oral 75 mcg, daily Lovastatin Oral 40 mg, at bedtime Magnesium Oral 400 mg, daily MiraLax Oral 1 packet NexIUM Oral 40 mg, daily Nitroglycerin Translingual 0.4mg tablets, up to 3 q5min, PRN Pantoprazole Sodium Oral 40 mg, daily Ranitidine HCl Oral 150 mg, 2x a day Sertraline HCl Oral 100 mg, daily Spironolactone Oral 25 mg, daily Tylenol Oral 500 mg daily Vitamin B-12 Oral Vitamin D Oral 5000 units daily The source(s) of the original Home Medication information: patient The following Medications were given to the patient in the Emergency Department: IV NS IV Fluids bolus 0, then 500 mL/hr, administered: 05/06/2016 2:34:00 PM Dilaudid [IVP] IVP 0.5 mg, administered: 05/06/2016 3:50:00 PM albumin IV bolus 0, then 25 grams, administered: 05/07/2016 12:03:02 AM The following Medications were prescribed to the patient: None.
--- NOTE | 2016-05-07 08:38 | ED DISCHARGE INSTRUCTIONS ---
Patient: GAURI FUENTES General Instructions [facility] VisitID: [id number] [address] [place] [address] 80y, F Registration Date/Time: 05/06/2016 Suspected biliary obstruction Indeterminate Troponin Leukocytosis Afib Chronic Renal Failure DM CHF. INSTRUCTIONS Warnings: Further evaluation is necessary. (Electronically signed by Sandrine Westfall P.A.-C 05/06/2016 22:23)
== END 2016-05-07 00:05 ==
LOC: ED SRH 14:10
DX: I12.9 Hypertensive chronic kidney disease with stage 1 through stage 4 chronic kidney disease, or unspecified chronic kidney disease (principal); E11.22 Type 2 diabetes mellitus with diabetic chronic kidney disease; N18.9 Chronic kidney disease, unspecified; I48.91 Unspecified atrial fibrillation; I50.9 Heart failure, unspecified; R79.89 Other specified abnormal findings of blood chemistry; D72.819 Decreased white blood cell count, unspecified; Z98.84 Bariatric surgery status; Z88.5 Allergy status to narcotic agent; Z79.899 Other long term (current) drug therapy; Z79.2 Long term (current) use of antibiotics
CPT/HCPCS: 90004; 90100; 90137; 90301; 90616; 91320; 91400; 91588; 92031; 92235; 92530; 92610; 92720; 93004; 94001; 94060; 95059